=== PATIENT | male | born 1960 | race Caucasian/White ===

== ENCOUNTER 2017-06-28 02:26 | Emergency (ER) | payer OTHER ==
[~2017-06-28] VITALS: Ht 182.9 cm; Wt 72.1 kg
[~2017-06-28 02:26] MED LIST: FLEXERIL10 MG PO; FLEXERIL5 MG PO; LORTAB 10-3251 EACH PO; LORTAB 5-325 M1 EACH PO; MOTRIN600 MG PO; MOTRIN800 MG PO; NAPROSYN500 MG PO; PERCOCET 7.51 TABLET PO; TEGRETOL200 MG PO; VICODIN,LORT1 TABLET PO
[2017-06-28] MEDS ORDERED: PERCOCET 5/31 TABLET PO (04:02)
[2017-06-28] MEDS ORDERED: MOTRIN800 MG PO (04:02)
[2017-06-28 04:25] VITALS: BP 125/98
== END 2017-06-28 04:25 | disposition home or self-care (01) ==
LOC: EME 02:26
DX: S62.521A Displaced fracture of distal phalanx of right thumb, initial encounter for closed fracture (principal); W23.0XXA Caught, crushed, jammed, or pinched between moving objects, initial encounter; F17.200 Nicotine dependence, unspecified, uncomplicated
CPT/HCPCS: 73130; 99281; 99284

== ENCOUNTER 2018-01-06 14:14 | Emergency (ER) | payer OTHER ==
[~2018-01-06] VITALS: Ht 180.3 cm; Wt 71.6 kg
[~2018-01-06 14:14] MED LIST changes: +PERCOCET 5/31 TABLET PO
[2018-01-06 15:39] VITALS: BP 120/76
== END 2018-01-06 15:45 | disposition home or self-care (01) ==
LOC: EME 14:14
DX: M70.22 Olecranon bursitis, left elbow (principal); S00.83XA Contusion of other part of head, initial encounter; R53.1 Weakness; W18.30XA Fall on same level, unspecified, initial encounter; R56.9 Unspecified convulsions; F17.200 Nicotine dependence, unspecified, uncomplicated; Z88.0 Allergy status to penicillin
CPT/HCPCS: 99281; 99284

== ENCOUNTER 2018-01-24 14:36 | Emergency (ER) | payer OTHER ==
[~2018-01-24] VITALS: Ht 180.3 cm; Wt 72.7 kg
[2018-01-24 15:14] LABS: HEMATOCRIT 43.9 % (38.0-50.0); HEMOGLOBIN 14.8 G/DL (12.5-16.6); MCH 30.3 PG (29.0-34.0); MCHC 33.7 G/DL (30.0-36.0); MCV 89.8 FL (86-99); PLATELET COUNT 342 K/uL (156-360); RBC DIS.WIDTH-CV 13.2 % (11.8-14.6); RBC DIS.WIDTH-SD 43.7 % (39-53); RED BLOOD COUNT 4.89 M/uL (4.00-5.50); WHITE BLOOD COUNT 9.6 K/uL (4.1-10.2)
[2018-01-24 15:23] LABS: CHLORIDE 102 mEq/L (99-109); SODIUM 137 mEq/L (136-147)
[2018-01-24 15:24] LABS: GLUCOSE 127 mg/dL (70-99)
[2018-01-24 15:28] LABS: CREATININE 1.1 mg/dL (0.6-1.3); GFR ESTIMATE (CALCULATED) > 59 mL/min/ (58.99-99999)
[2018-01-24 15:29] LABS: UREA NITROGEN (BUN) 12 mg/dL (9-23)
[2018-01-24 17:14] LABS: APPEARANCE CLEAR ((CLEAR)); BILIRUBIN NEGATIVE; BLOOD SMALL; COLOR YELLOW ((YELLOW)); GLUCOSE (STRIP) NEGATIVE; KETONES NEGATIVE; LEUKOCYTES TRACE; NITRITE POSITIVE; PROTEIN (STRIP) NEGATIVE; UROBILINOGEN 0.2 MG/DL (0.2-1.0)
[2018-01-24 17:31] LABS: BACTERIA RARE /HPF; EPITHELIAL CELLS RARE /HPF; MUCUS TRACE /LPF; UCUL ADDED? YES; WHITE BLOOD CELLS 15-20 /HPF (0-5)
[2018-01-24] MEDS ORDERED: BACTRIM,SEPT1 TABLET PO (20:01)
[2018-01-24] MEDS ORDERED: TEGRETOL200 MG PO (20:01)
[2018-01-24 20:29] VITALS: BP 115/88
== END 2018-01-24 20:33 | disposition home or self-care (01) ==
LOC: EME 14:36
PROVIDERS: Emergency Medicine
DX: S30.0XXA Contusion of lower back and pelvis, initial encounter (principal); N39.0 Urinary tract infection, site not specified; R42 Dizziness and giddiness; W13.2XXA Fall from, out of or through roof, initial encounter; G40.909 Epilepsy, unspecified, not intractable, without status epilepticus; T42.1X6A Underdosing of iminostilbenes, initial encounter; Z91.14 Patient's other noncompliance with medication regimen; F17.200 Nicotine dependence, unspecified, uncomplicated; Z88.0 Allergy status to penicillin
CPT/HCPCS: 70450; 71046; 74176; 80048; 81003; 85027; 87077; 87086; 87186; 93005; 99281; 99285

== ENCOUNTER 2018-03-23 10:59 | Emergency (ER) | payer OTHER ==
[~2018-03-23] VITALS: Ht 180.3 cm; Wt 75.9 kg
[~2018-03-23 10:59] MED LIST changes: +BACTRIM,SEPT1 TABLET PO
[2018-03-23 16:07] LABS: APPEARANCE CLEAR ((CLEAR)); BILIRUBIN NEGATIVE; BLOOD NEGATIVE; COLOR YELLOW ((YELLOW)); GLUCOSE (STRIP) NEGATIVE; KETONES NEGATIVE; LEUKOCYTES NEGATIVE; NITRITE NEGATIVE; PROTEIN (STRIP) NEGATIVE; SPECIFIC GRAVITY 1.011 (1.000-1.030); UCUL ADDED? NO; UROBILINOGEN 0.2 MG/DL (0.2-1.0)
[2018-03-23] MEDS ORDERED: VOLTAREN 1% GE100 GM TP (16:21)
[2018-03-23] MEDS ORDERED: MOTRIN800 MG PO (16:21)
[2018-03-23] MEDS ORDERED: SKELAXIN800 MG PO (16:21)
[2018-03-23] MEDS ORDERED: TEGRETOL200 MG PO (16:23)
[2018-03-23 16:39] VITALS: BP 158/89
== END 2018-03-23 16:40 | disposition home or self-care (01) ==
LOC: EME 10:59
PROVIDERS: Nurse Practitioner Family
DX: S39.012A Strain of muscle, fascia and tendon of lower back, initial encounter (principal); Z76.0 Encounter for issue of repeat prescription; Z88.0 Allergy status to penicillin; Z91.013 Allergy to seafood; Z91.018 Allergy to other foods
CPT/HCPCS: 81003; 99281; 99284

== ENCOUNTER 2018-07-06 23:22 | Emergency (ER) | payer OTHER ==
[~2018-07-06] VITALS: Ht 180.3 cm; Wt 76.5 kg
[~2018-07-06 23:22] MED LIST changes: +SKELAXIN800 MG PO; +VOLTAREN 1% GE100 GM TP
[2018-07-07] MEDS ORDERED: FLEXERIL10 MG PO (01:26)
[2018-07-07] MEDS ORDERED: LIDODERM 5% P1 PATCH TD (01:26)
[2018-07-07] MEDS ORDERED: NORCO 5/3251 TABLET PO (01:26)
[2018-07-07 01:44] VITALS: BP 125/88
== END 2018-07-07 01:44 | disposition home or self-care (01) ==
LOC: EME 23:22
DX: S39.012A Strain of muscle, fascia and tendon of lower back, initial encounter (principal); V49.50XA Passenger injured in collision with unspecified motor vehicles in traffic accident, initial encounter; M51.37 Other intervertebral disc degeneration, lumbosacral region; F17.200 Nicotine dependence, unspecified, uncomplicated; Z88.0 Allergy status to penicillin; Z91.018 Allergy to other foods
CPT/HCPCS: 72100; 99281; 99284